=== PATIENT | male | born 1955 | race Caucasian/White ===

== ENCOUNTER → 2024-09-15 12:42 | Outpatient (REF) | payer OTHER, SELFPAY | LOC: RCS 12:42 | PROVIDERS: ATTENDING PHYSICIAN Internal Medicine Cardiovascular Disease; FAMILY PHYSICIAN Family Medicine | DX: Z95.2 Presence of prosthetic heart valve (principal); I45.10 Unspecified right bundle-branch block; I44.0 Atrioventricular block, first degree | CPT/HCPCS: 93306 ==

== ENCOUNTER → 2025-06-18 12:52 | Outpatient (REF) | payer OTHER, SELFPAY | LOC: HWRCS 12:52 | PROVIDERS: ATTENDING PHYSICIAN Internal Medicine Cardiovascular Disease; FAMILY PHYSICIAN Family Medicine | DX: Z95.2 Presence of prosthetic heart valve (principal); I45.10 Unspecified right bundle-branch block; I44.0 Atrioventricular block, first degree; Z79.01 Long term (current) use of anticoagulants | CPT/HCPCS: 93306 ==

== ENCOUNTER → 2025-07-01 13:55 | Outpatient (REF) | payer OTHER, SELFPAY | LOC: RCS 13:55 | PROVIDERS: ATTENDING PHYSICIAN Internal Medicine Cardiovascular Disease; FAMILY PHYSICIAN Family Medicine | DX: Z95.2 Presence of prosthetic heart valve (principal); I45.10 Unspecified right bundle-branch block; I44.0 Atrioventricular block, first degree; Z79.01 Long term (current) use of anticoagulants; I77.810 Thoracic aortic ectasia | CPT/HCPCS: 93225; 93226 ==